=== PATIENT | female | born 1935 | race Caucasian/White ===

== ENCOUNTER 2021-04-23 16:11 | Emergency (ER) | payer SELFPAY ==
[~2021-04-23] VITALS: Ht 145.3 cm; Wt 70.4 kg
[2021-04-23 16:22] VITALS: BP 143/77
--- NOTE | 2021-04-23 16:29 | NUR ---
PATIENT LEFT WITHOUT BEING SEEN BY . NO FURTHER CARE PROVIDED FOR PATIENT.
== END 2021-04-23 16:25 | disposition left against medical advice (07) ==
LOC: MED 16:11
DX: R10.13 Epigastric pain (principal); Z53.21 Procedure and treatment not carried out due to patient leaving prior to being seen by health care provider